=== PATIENT | male | born 1970 | race African-American/Black ===

== ENCOUNTER 2023-10-11 14:46 | Inpatient (IN) | payer OTHER ==
[2023-10-11 18:44] VITALS: BMI 25.1
[2023-10-11] MEDS ORDERED: MAGNESIUM HYDROX 2400MG/30ML ORAL SUSPENSION 30 ML CUP PO PRN (20:14)
[2023-10-11] MEDS ORDERED: BENZONATATE 200 MG CAPSULE PO PRN (20:14)
[2023-10-11] MEDS ORDERED: ONDANSETRON *ODT* 4 MG TABLET SL PRN (20:14)
[2023-10-11] MEDS ORDERED: guaiFENesin 600 MG TABLET.ER (FP) PO PRN (20:14)
[2023-10-11] MEDS ORDERED: NALOXONE HCL (KLOXXADO) 8 MG SPRAY NS PRN (20:14)
[2023-10-11] MEDS ORDERED: LOPERAMIDE HCL 2 MG CAPSULE PO PRN (20:14)
[2023-10-11] MEDS ORDERED: DICYCLOMINE HCL 10 MG CAPSULE PO PRN (20:14)
[2023-10-11] MEDS ORDERED: IBUPROFEN 400 MG TABLET (FP) PO PRN (20:14)
[2023-10-11] MEDS ORDERED: POLYETHYLENE GLYCOL (HEALTHYLAX) 3350 17 GM PACKET PO PRN (20:14)
[2023-10-11] MEDS ORDERED: hydrOXYzine PAMOATE 25 MG CAPSULE (FP) PO PRN (20:14)
[2023-10-11] MEDS ORDERED: BENZOCAINE/MENTHOL (CHLORASEPTIC ) LOZENGE MM PRN (20:14)
[2023-10-11] MEDS ORDERED: BISMUTH SUBSALICYLATE 524 MG/30 ML PO PRN (20:14)
[2023-10-11] MEDS ORDERED: MAG HYDROX/AL HYDROX/SIMETH 30 ML UNIT-DOSE CUP PO PRN (20:14)
[2023-10-11] MEDS ORDERED: IBUPROFEN 600 MG TABLET (FP) PO PRN (20:14)
[2023-10-11] MEDS ORDERED: P-EPHED 60MG/TRIPROLIDI 2.5MG TABLET PO PRN (20:14)
[2023-10-11] MEDS ORDERED: NALOXONE HCL 0.4 MG/ML VIAL IM PRN (20:14)
[2023-10-11] MEDS ORDERED: amLODIPine BESYLATE 5 MG TABLET (FP) ONE (20:29)
[2023-10-11] MEDS: amLODIPine BESYLATE 10 MG TABLET (FP) PO SCH (20:31)
[2023-10-11] MEDS: METHOCARBAMOL 500 MG TABLET PO PRN (21:49)
[2023-10-11] MEDS: THIAMINE HCL 100 MG TABLET (FP) PO SCH (21:49)
[2023-10-11] MEDS: MELATONIN 5 MG TABLETS PO SCH (21:49)
[2023-10-12] MEDS: PRENATAL VITAMINS W/ FOLIC ACID TABLET (FP) PO SCH (10:16)
[2023-10-12] MEDS: METHOCARBAMOL 500 MG TABLET PO PRN (10:16)
[2023-10-12] MEDS: amLODIPine BESYLATE 10 MG TABLET (FP) PO SCH (10:16)
[2023-10-12 11:11] LABS: HEMATOCRIT 35.7 % (35.4-49); HEMOGLOBIN 11.5 GM/dL (11.7-16.9); MCH 31.5 pg (25.7-33.7); MCHC 32.2 g/dl (32.0-35.9); MEAN CELL VOLUME 97.9 fl (80-96); PLATELET COUNT 250 10^3/uL (134-434); RBC 3.64 M/mm3 (4.00-5.60); RDW 14.3 % (11.9-15.9); WHITE BLOOD COUNT 4.7 K/mm3 (4.0-10.0)
[2023-10-12 11:23] LABS: CREATININE 0.8 mg/dL (0.55-1.3)
[2023-10-12 11:24] LABS: TOT PROT 6.4 g/dl (6.4-8.2)
[2023-10-12 11:25] LABS: BILIRUBIN,TOTAL 0.3 mg/dL (0.2-1)
[2023-10-12 11:28] LABS: BLOOD UREA NITROGEN 14.1 mg/dL (7-18)
[2023-10-12 11:32] LABS: CALCIUM 8.6 mg/dL (8.5-10.1)
[2023-10-12] MEDS: THIAMINE HCL 100 MG TABLET (FP) PO SCH (22:27)
[2023-10-12] MEDS: MELATONIN 5 MG TABLETS PO SCH (22:27)
[2023-10-12] MEDS: ACETAMINOPHEN 325 MG TABLET (FP) PO PRN (22:29)
[2023-10-13 09:15] VITALS: PULSE 73; RESP 18
[2023-10-13] MEDS: amLODIPine BESYLATE 10 MG TABLET (FP) PO SCH (10:14)
[2023-10-13] MEDS: METHOCARBAMOL 500 MG TABLET PO PRN (10:14)
[2023-10-13] MEDS: PRENATAL VITAMINS W/ FOLIC ACID TABLET (FP) PO SCH (10:14)
[2023-10-13] MEDS: ACETAMINOPHEN 325 MG TABLET (FP) PO PRN (10:15)
[2023-10-13 13:12] VITALS: BP 150/99; TEMP 98.2
== END 2023-10-13 15:15 | disposition home or self-care (01) | DRG 773 ==
LOC: YASAS 14:46 → Y6N 20:06
PROVIDERS: ADMIT Allergy & Immunology; ATTEND Surgery
PROC: HZ2ZZZZ Detoxification Services for Substance Abuse Treatment (ICD-10-PCS; principal; 2023-10-11)
DX: F11.20 Opioid dependence, uncomplicated (principal); F14.20 Cocaine dependence, uncomplicated; F12.20 Cannabis dependence, uncomplicated; F41.9 Anxiety disorder, unspecified; F43.10 Post-traumatic stress disorder, unspecified; I10 Essential (primary) hypertension; K40.90 Unilateral inguinal hernia, without obstruction or gangrene, not specified as recurrent; B36.0 Pityriasis versicolor
CPT/HCPCS: 36415; 71046-TC-FY; 80053; 85027; 86780; 87635; 93005; 93010

== ENCOUNTER 2024-05-18 22:19 | Inpatient (IN) | payer OTHER ==
[2024-05-18 22:49] VITALS: BMI 29.4
[2024-05-19] MEDS ORDERED: MAGNESIUM HYDROX 2400MG/30ML ORAL SUSPENSION 30 ML CUP PO PRN (00:26)
[2024-05-19] MEDS ORDERED: BENZOCAINE/MENTHOL (CHLORASEPTIC ) LOZENGE MM PRN (00:26)
[2024-05-19] MEDS ORDERED: hydrOXYzine PAMOATE 25 MG CAPSULE (FP) PO PRN (00:26)
[2024-05-19] MEDS ORDERED: POLYETHYLENE GLYCOL (HEALTHYLAX) 3350 17 GM PACKET PO PRN (00:26)
[2024-05-19] MEDS ORDERED: ONDANSETRON *ODT* 4 MG TABLET SL PRN (00:26)
[2024-05-19] MEDS ORDERED: BENZONATATE 200 MG CAPSULE PO PRN (00:26)
[2024-05-19] MEDS ORDERED: MAG HYDROX/AL HYDROX/SIMETH 30 ML UNIT-DOSE CUP PO PRN (00:26)
[2024-05-19] MEDS ORDERED: NALOXONE (NARCAN) HCL 4 MG/0.1 ML SPRAY NS PRN (00:26)
[2024-05-19] MEDS ORDERED: IBUPROFEN 400 MG TABLET (FP) PO PRN (00:26)
[2024-05-19] MEDS ORDERED: DICYCLOMINE HCL 10 MG CAPSULE PO PRN (00:26)
[2024-05-19] MEDS ORDERED: ACETAMINOPHEN 325 MG TABLET (FP) PO PRN (00:26)
[2024-05-19] MEDS ORDERED: IBUPROFEN 600 MG TABLET (FP) PO PRN (00:26)
[2024-05-19] MEDS ORDERED: BISMUTH SUBSALICYLATE 524 MG/30 ML PO PRN (00:26)
[2024-05-19] MEDS ORDERED: LOPERAMIDE HCL 2 MG CAPSULE PO PRN (00:26)
[2024-05-19] MEDS ORDERED: METHOCARBAMOL 500 MG TABLET PO PRN (00:26)
[2024-05-19] MEDS ORDERED: NALOXONE HCL 0.4 MG/ML VIAL IM PRN (00:26)
[2024-05-19] MEDS ORDERED: guaiFENesin 600 MG TABLET.ER (FP) PO PRN (00:26)
[2024-05-19] MEDS: PRENATAL VITAMINS W/ FOLIC ACID TABLET (FP) PO SCH (10:35)
[2024-05-19] MEDS: ENALAPRIL MALEATE 5 MG TABLET PO SCH (14:37)
[2024-05-19] MEDS: CITALOPRAM HYDROBROMIDE 10 MG TABLET PO SCH (14:37)
[2024-05-19] MEDS: amLODIPine BESYLATE 10 MG TABLET (FP) PO SCH (14:37)
[2024-05-19] MEDS: DOXYCYCLINE HYCLATE 100 MG TABLET PO SCH (17:24)
[2024-05-19] MEDS: DIVALPROEX SODIUM 500 MG TABLET E.C. PO SCH (22:33)
[2024-05-19] MEDS: THIAMINE 100 MG TABLET PO SCH (22:33)
[2024-05-19] MEDS: MELATONIN 5 MG TABLETS PO SCH (22:33)
[2024-05-20 06:01] VITALS: RESP 18
[2024-05-20 09:25] VITALS: BP 125/76; PULSE 63; TEMP 97.3
[2024-05-20 11:51] LABS: HEMATOCRIT 30.6 % (35.4-49); HEMOGLOBIN 10.1 GM/dL (11.7-16.9); MCH 31.7 pg (25.7-33.7); MCHC 33.1 g/dl (32.0-35.9); MEAN PLT VOLUME 9.4 fl (7.5-11.1); PLATELET COUNT 228 10^3/uL (134-434); RBC 3.18 M/mm3 (4.00-5.60); RDW 14.2 % (11.9-15.9); WHITE BLOOD COUNT 6.1 K/mm3 (4.0-10.0)
[2024-05-20 12:28] LABS: ALBUMIN 3.2 g/dl (3.4-5.0); BILIRUBIN,TOTAL 0.3 mg/dL (0.2-1); BLOOD UREA NITROGEN 44.4 mg/dL (7-18); CALCIUM 8.3 mg/dL (8.5-10.1); CREATININE 1.7 mg/dL (0.55-1.3); POTASSIUM 4.6 mmol/L (3.5-5.1); TOT PROT 7.4 g/dl (6.4-8.2)
[2024-05-20] MEDS ORDERED: DIVALPROEX NA *ER* EXTEND REL 500 MG TABLET.SA (FP) PO SCH (22:00)
== END 2024-05-20 11:10 | disposition other institution (70) | DRG 773 ==
LOC: YASAS 22:19 → Y6N 23:52
PROVIDERS: ADMIT Allergy & Immunology; ATTEND Surgery
PROC: HZ2ZZZZ Detoxification Services for Substance Abuse Treatment (ICD-10-PCS; principal; 2024-05-18)
DX: F11.20 Opioid dependence, uncomplicated (principal); F19.280 Other psychoactive substance dependence with psychoactive substance-induced anxiety disorder; F19.282 Other psychoactive substance dependence with psychoactive substance-induced sleep disorder; F43.10 Post-traumatic stress disorder, unspecified; F60.2 Antisocial personality disorder; I10 Essential (primary) hypertension; J45.909 Unspecified asthma, uncomplicated; L03.114 Cellulitis of left upper limb; B36.0 Pityriasis versicolor; Z86.11 Personal history of tuberculosis; Z87.891 Personal history of nicotine dependence; Z56.0 Unemployment, unspecified; Z59.00 Homelessness unspecified
CPT/HCPCS: 36415; 80053; 80305; 80307; 85027; 86780; 87811; 93005; 93010

== ENCOUNTER 2024-05-20 11:06 | Inpatient (IN) | payer OTHER ==
[2024-05-20] MEDS ORDERED: hydrOXYzine PAMOATE 25 MG CAPSULE (FP) PO PRN (13:59)
[2024-05-20] MEDS ORDERED: MAG HYDROX/AL HYDROX/SIMETH 30 ML UNIT-DOSE CUP PO PRN (13:59)
[2024-05-20] MEDS ORDERED: ACETAMINOPHEN 325 MG TABLET (FP) PO PRN (13:59)
[2024-05-20] MEDS ORDERED: BENZONATATE 200 MG CAPSULE PO PRN (13:59)
[2024-05-20] MEDS ORDERED: NALOXONE (NARCAN) HCL 4 MG/0.1 ML SPRAY NS PRN (13:59)
[2024-05-20] MEDS ORDERED: MAGNESIUM HYDROX 2400MG/30ML ORAL SUSPENSION 30 ML CUP PO PRN (13:59)
[2024-05-20] MEDS ORDERED: IBUPROFEN 400 MG TABLET (FP) PO PRN (13:59)
[2024-05-20] MEDS ORDERED: POLYETHYLENE GLYCOL (HEALTHYLAX) 3350 17 GM PACKET PO PRN (13:59)
[2024-05-20] MEDS ORDERED: BENZOCAINE/MENTHOL (CHLORASEPTIC ) LOZENGE MM PRN (13:59)
[2024-05-20] MEDS ORDERED: METHOCARBAMOL 500 MG TABLET PO PRN (13:59)
[2024-05-20] MEDS ORDERED: LOPERAMIDE HCL 2 MG CAPSULE PO PRN (13:59)
[2024-05-20] MEDS ORDERED: guaiFENesin 600 MG TABLET.ER (FP) PO PRN (13:59)
[2024-05-20] MEDS ORDERED: IBUPROFEN 600 MG TABLET (FP) PO PRN (13:59)
[2024-05-20] MEDS ORDERED: NALOXONE HCL 0.4 MG/ML VIAL IVPUSH PRN (13:59)
[2024-05-20] MEDS: MELATONIN 5 MG TABLETS PO SCH (21:40)
[2024-05-20] MEDS: THIAMINE 100 MG TABLET PO SCH (21:40)
[2024-05-20] MEDS: DIVALPROEX NA *ER* EXTEND REL 500 MG TABLET.SA (FP) PO SCH (21:40)
[2024-05-21] MEDS: ENALAPRIL MALEATE 5 MG TABLET PO SCH (09:35)
[2024-05-21] MEDS: PRENATAL VITAMINS W/ FOLIC ACID TABLET (FP) PO SCH (09:35)
[2024-05-21] MEDS: CITALOPRAM HYDROBROMIDE 10 MG TABLET PO SCH (09:35)
[2024-05-21] MEDS: amLODIPine BESYLATE 10 MG TABLET (FP) PO SCH (09:36)
[2024-05-23] MEDS: ENALAPRIL MALEATE 5 MG TABLET PO ONE (12:05)
[2024-05-24] MEDS: ENALAPRIL MALEATE 10 MG TABLET PO SCH (09:36)
[2024-05-24] MEDS ORDERED: ENALAPRIL MALEATE 10 MG TABLET PO SCH ×2 (22:00)
[2024-05-26] MEDS ORDERED: ACETAMINOPHEN 325 MG TABLET (FP) PO PRN (10:55)
[2024-05-26] MEDS: ENALAPRIL MALEATE 10 MG TABLET PO SCH (21:32)
[2024-05-30 06:52] VITALS: TEMP 97.5
[2024-05-30 08:52] VITALS: BP 151/90; PULSE 73; RESP 18
== END 2024-05-30 10:25 | disposition home or self-care (01) | DRG 772 ==
LOC: YASAS 11:06 → Y3W 11:08
PROVIDERS: ADMIT Allergy & Immunology; ATTEND Psychiatry & Neurology Pain Medicine
PROC: HZ42ZZZ Group Counseling for Substance Abuse Treatment, Cognitive-Behavioral (ICD-10-PCS; principal; 2024-05-20)
DX: F11.20 Opioid dependence, uncomplicated (principal); F19.280 Other psychoactive substance dependence with psychoactive substance-induced anxiety disorder; F19.282 Other psychoactive substance dependence with psychoactive substance-induced sleep disorder; F41.9 Anxiety disorder, unspecified; F43.10 Post-traumatic stress disorder, unspecified; F60.2 Antisocial personality disorder; I12.9 Hypertensive chronic kidney disease with stage 1 through stage 4 chronic kidney disease, or unspecified chronic kidney disease; N18.9 Chronic kidney disease, unspecified; B36.0 Pityriasis versicolor; R76.11 Nonspecific reaction to tuberculin skin test without active tuberculosis; Z56.0 Unemployment, unspecified
CPT/HCPCS: 80164